=== PATIENT | male | born 1945 | race Caucasian/White ===

== ENCOUNTER → 2021-02-21 | Outpatient (CLI) | payer MEDICARE ==
--- NOTE | 2021-02-21 13:20 | REP ---
INDICATION: DYSPNEA, UNSPECIFIED COMPARISON: 12/12/2012. TECHNIQUE: PA/Lateral FINDINGS: Lungs: Clear, no infiltrate. Heart: Normal in size. Mediastinum: Mediastinal silhouette unremarkable. Pleural angles: Unremarkable.. Bones and soft tissues: There are degenerative changes of the spine without compression deformity. IMPRESSION: No acute pulmonary disease. <Electronically signed by Joel Lan > 02/21/21 [id number]
== END ==
LOC: M RAD 12:52
PROVIDERS: ATTEND Pediatrics
DX: R06.00 Dyspnea, unspecified (principal)

== ENCOUNTER 2021-12-10 12:44 | Emergency (ER) | payer MEDICARE ==
[~2021-12-10] VITALS: Ht 177.8 cm; Wt 93.2 kg
[2021-12-10 16:04] VITALS: BP 131/70
[2021-12-10] MEDS ORDERED: NIRMATRELVIR/RITONAVIR CO-PACK (EMERGENCY USE AUTH) PO SCH ×2 (16:15→21:00)
== END 2021-12-10 17:42 | disposition home or self-care (01) ==
LOC: M ED 12:44
DX: U07.1 COVID-19 (principal)